=== PATIENT | male | born 1970 | race Caucasian/White ===

== ENCOUNTER 2022-10-01 09:54 | Inpatient (IN) ==
[2022-10-01] MEDS ORDERED: LIDOCAINE 2% JELLY 5 ML TUBE EXT ONE (10:18)
--- NOTE | 2022-10-01 10:22 | Emergency Department Note ---
ED Provider Note History of Present Illness Chief Complaint: Kidney Stone Stated Complaint: KIDNEY STONE Time Seen by Provider: 10/01/22 10:04 52-year-old male who presents the emergency department for evaluation of a kidney stone stuck in his penis. The patient reports that he noticed it yesterday, and tried to reposition it to get it to pass, and also tried to pull it out without success. He thinks that it is an inch long with a disc portion to it as well. He reports difficulty urinating around it with abdominal pressure. The patient does report a prior history of kidney stones. Patient denies any back pain, nausea or fever. Home Medications Medication Instructions Recorded Confirmed Type acetaminophen 500 mg tablet 500 mg PO BID PRN Pain 03/02/19 03/02/19 History (Tylenol Extra Strength) ibuprofen 200 mg tablet 400 - 600 mg PO BID PRN Pain 03/02/19 03/02/19 History multivitamin 1 tab PO DAILY 03/02/19 03/02/19 History naproxen sodium 220 mg tablet 220 mg PO BID PRN Pain 03/02/19 03/02/19 History Allergies Allergy/AdvReac Type Severity Reaction Status Date / Time No Known Allergies Allergy Verified 03/15/19 06:25 Past Med/Surg History Medical History (Updated 10/02/22 @ 06:46 by Ramses Lim MD) Kidney stones Surgical History H/O wisdom tooth extraction History of cystoscopy History of lithotripsy x2 Family History Uncle Family hx of colon cancer great uncle FHx: prostate cancer great uncle FHx: bladder cancer Grandfather (Maternal) FHx: sudden cardiac (SCD) Brother FHx: stroke, Onset Age: 32 Other No family history of adverse response to anesthesia Social History Smoking Status: Former smoker Second Hand Exposure: Yes (as a child); Do You Dip or Chew Tobacco: Yes (1 can/day (advised)); Hx Alcohol Use: No Hx Substance Use: No Preferred Language: Japanese Communication Ability: Effective Acetaldehyde Converter Operator Required: No Beliefs That Will Affect Care: None Current Living Situation: Significant Other Current Living Situation Comment: lives with Jadiel Caba Other Information That Helps Us Care for You: No Feels Safe at Home: Yes Safety Concerns: Feels Safe At This Time Assistive Devices: None Physical Exam Vital Signs Vital Signs - 24 hr 10/01/22 12:50 10/01/22 13:15 Temperature 36.6 C 36.5 C Temperature Source Oral Oral Pulse Rate 107 H Pulse Rate [Apical] 107 H Pulse Rhythm [Apical] Regular Respiratory Rate 18 20 Respiratory Effort / Characteristics Non-Labored Spontaneous Normal for Patient Respiratory Depth Normal Respiratory Pattern Regular Blood Pressure 111/82 Blood Pressure [Right Arm] 115/73 Blood Pressure Mean [Right Arm] 87 Blood Pressure Position [Right Arm] Semi-fowlers Pulse Oximetry 98 97 Oxygen Delivery Method Room Air Room Air CONSTITUTIONAL: Healthy and well nourished. Patient does not appear in any a cute distress. HEENT: No scleral icterus or conjunctival injection/pallor RESPIRATORY: Clear to auscultation bilaterally with no wheezing, crackles, rhonchi or stridor. CARDIOVASCULAR: Regular rate and rhythm with no murmurs, rubs or gallops. GASTROINTESTINAL: Bowel sounds present in all quadrants. Patient has minimal suprapubic tenderness to palpation. Negative CVA tenderness. MUSCULOSKELETAL: Full range of motion of all joints without discomfort. INTEGUMENTARY: Examination shows an erythematous rash on the forearms, inguinal creases and legs, with an estimated body surface area of 29% by rule of nines. HEMATOLOGIC: No ecchymosis or petechiae. PSYCHIATRIC: Positive affect. NEUROLOGIC: No focal neurologic deficits noted. Procedures Free Text Procedures Patient agreed to try extraction of the urethral stone after application of Uro- Jet lidocaine 2% jelly. I was able to administer some of the jelly passed the stone, however did not get adequate local anesthesia at the urethral meatus, with the patient unable to tolerate attempted stone removal. This was all done in sterile fashion. Course Course Patient history and physical exam were performed. Nurses notes were reviewed. Vital signs were reviewed and. At this point, I did recommend trying to extract the stone after applying Uro-Jet lidocaine 2% jelly, but unfortunate the patient was unable to tolerate the procedure. At this point, I did reach out to [facility] (ARIEL Patton), who came to the emergency department and attempted removal as well without success. At this point, the patient will be taken to the OR for sedation and stone removal. Please see urology dictation for further treatment and final disposition. I did order preop labs for urology for surgical and anesthesiology convenience. It is noted that the patient also had skin lesions on his arms, abdomen, groin and legs after using Clorox wipes on his skin. Administered Medications Docusate Sodium (Docusate Sodium 100 Mg Cap) 100 mg PO BID TAMMY Stop: 10/31/22 20:59 Last Admin: 10/02/22 09:14 Dose: 100 mg Documented By: Admin: 10/01/22 21:28 Dose: 100 mg Documented By: KARSONP Cefazolin Sodium (Ancef 1000mg) 1,000 mg in 7.5 mls @ 3.75 mls/min IV Q12H TAMMY Stop: 10/07/22 09:29 Last Admin: 10/02/22 10:51 Dose: 3.75 mls/min Documented By: ALVINA Oxycodone HCl (Oxycodone Hcl Ir 5 Mg Tab (Immediate Release)) 10 mg PO Q4H PRN PRN Reason: SEVERE Pain (7,8,9,10) Stop: 10/15/22 15:52 Last Admin: 10/01/22 16:22 Dose: 10 mg Documented By: KD Discontinued Medications Bupivacaine HCl (Bupivacaine 0.5 % 5 Mg/1 Ml Mpf 30ml Vial) Confirm Administered Dose 30 ml .ROUTE .STK-MED ONE Stop: 10/01/22 12:59 Last Admin: 10/01/22 14:16 Dose: 10 ml Documented By: [id number] Diphenhydramine HCl (Diphenhydramine Capsule 25 Mg Cap) 25 mg PO NOW ONE Stop: 10/01/22 15:08 Last Admin: 10/01/22 15:13 Dose: 25 mg Documented By: WT Fentanyl Citrate (Fentanyl Citrate Pf 100 Mcg/2 Ml Vial) 50 mcg IV Q5M PRN PRN Reason: PACU Use Only-Pain Stop: 10/01/22 21:31 Last Admin: 10/01/22 15:18 Dose: 50 mcg Documented By: Admin: 10/01/22 15:13 Dose: 50 mcg Documented By: WT Cefazolin Sodium (Ancef 2000mg) 2,000 mg in 15 mls @ 3.75 mls/min IV PREOP ONE; Protocol Stop: 10/01/22 12:53 Last Admin: 10/01/22 13:33 Dose: 3.75 mls/min Documented By: ALEXANDRO Lactated Ringer's (Lr) 1,000 mls @ 75 mls/hr IV .[id number] TAMMY Stop: 10/31/22 15:52 Last Infusion: 10/02/22 09:16 Dose: 0 mls/hr Documented By: Admin: 10/02/22 00:31 Dose: 75 mls/hr Documented By: Infusion: 10/02/22 00:31 Dose: 75 mls/hr Documented By: Admin: 10/01/22 16:19 Dose: 75 mls/hr Documented By: KAREN Lidocaine HCl (Lidocaine 2% Jelly 5 Ml Tube) 5 ml EXT NOW ONE Stop: 10/01/22 10:19 Last Admin: 10/01/22 11:52 Dose: 5 ml Documented By: PB Medical Decision Making Medical Records Attestation: I reviewed the patient's medical records. Home Medications was personally reviewed by me Laboratory Data Attestation: I reviewed the patient's lab results. 10/01/22 12:45 10/01/22 12:45 Lab Results 10/01/22 10/01/22 Range/Units 12:45 12:45 WBC 9.96 (4.8-10.8) K/ul RBC 3.66 L (4.70-6.10) M/uL Hgb 11.8 L (14.0-18.0) g/dl Hct 35.4 L (42.0-52.0) % MCV 96.7 (80.0-100.0) fL MCH 32.2 (25.0-34.0) pg MCHC 33.3 (32.0-36.0) g/dL RDW Std Deviation 49.1 H (36.4-46.3) fL RDW Coeff of [place] 13.9 (11.5-14.5) % Plt Count 258 (130-400) K/uL MPV 9.6 (9.4-12.4) fL Immature Gran % (Auto) 0.3 % Neut % (Auto) 93.2 % Lymph % (Auto) 2.7 % Randall % (Auto) 3.0 % Eos % (Auto) 0.5 % Baso % (Auto) 0.3 % Neut # (Auto) 9.28 H (1.40-6.50) K/uL Lymph # (Auto) 0.27 L (1.2-3.4) K/uL Randall # (Auto) 0.30 (0.11-0.59) K/uL Eos # (Auto) 0.05 (0-0.50) K/uL Baso # (Auto) 0.03 (0-0.2) K/uL Immature Gran # (Auto) 0.03 (0.01-0.20) K/uL Echinocytes 1+ Sodium 137 (136-145) mmol/L Potassium 4.6 (3.5-5.1) mmol/L Chloride 103 (98-107) mmol/L Carbon Dioxide 15 L (21-32) mmol/L Anion Gap 19 H (3-11) BUN 89 H (6-23) mg/dl Creatinine 12.94 H* (0.6-1.4) mg/dl Est Cr Clr Drug Dosing 8.0 ml/min Est GFR ( Amer) 4.6 ml/min Est GFR (Non-Af Amer) 4.0 ml/min BUN/Creatinine Ratio 6.9 L (10-20) Glucose 89 (70-99(Fasting)) mg/dl Calcium 7.7 L (8.6-10.3) mg/dl Total Bilirubin 0.6 (0.2-1.0) mg/dl AST 39 (13-39) U/L ALT 34 (7-52) U/L Alkaline Phosphatase 56 (34-104) U/L Total Protein 6.5 (6.0-8.3) gm/dl Albumin 3.5 (3.4-5.0) gm/dl Globulin 3.0 (2.5-4.0) gm/dl Albumin/Globulin Ratio 1.2 (0.9-2) MDM Narrative See ED Course section for further details of today's visit. The patient pre sents with complaint of a retained ureteral stone that he was unable to remove at home. Both myself and urology were unable to remove the stone while in the emergency department, therefore he will be taken to the OR for stone removal under anesthesia. As indicated previously, the patient also has a chemical dermatitis from attempting to clean his skin with a Clorox wipe. This should heal without any further issues, however I did recommend watching for any signs of developing infection. Impression Calculus in urethra, Chemical dermatitis Discharge Plan Visit Data Chief Complaint: Kidney Stone Stated Complaint: KIDNEY STONE ED Provider: Ronald Miner ED Midlevel Provider: Thanh Reza Discharge Problem: Calculus in urethra, Chemical dermatitis Patient Disposition: Admitted As Inpatient Discharge Instructions Interventions: ED Discharge Assessment Last Done: 10/01/22 12:50
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
[2022-10-01] MEDS ORDERED: LIDOCAINE 2% 2 ML VIAL/AMP(20MG/ML) INFIL ONE (12:48)
[2022-10-01] MEDS ORDERED: PROPOFOL IV EMULSION 10 MG/ML 20 ML VIAL IV ONE (12:48)
[2022-10-01] MEDS ORDERED: MIDAZOLAM HCL 1 MG/ML 2ML VIAL ONE (12:48)
[2022-10-01] MEDS ORDERED: fentaNYL citrate PF 100 MCG/2 ML VIAL ONE ×2 (12:48→13:49)
[2022-10-01] MEDS ORDERED: ceFAZolin 2000MG 2,000 MG/15 ML SYR IV ONE (12:50)
[2022-10-01] MEDS ORDERED: BUPIVACAINE 0.5 % 5 MG/1 ML MPF 30ML VIAL ONE (12:58)
[2022-10-01 13:16] LABS: Hematocrit (blood only) 35.4 % (42.0-52.0); Hemoglobin 11.8 g/dl (14.0-18.0); Mean Corpuscular Hemoglobin 32.2 pg (25.0-34.0); Mean Corpuscular Hgb Conc 33.3 g/dL (32.0-36.0); Mean Corpuscular Volume 96.7 fL (80.0-100.0); Mean Platelet Volume 9.6 fL (9.4-12.4); Platelet Count 258 K/uL (130-400); RDW Coefficient of Variation 13.9 % (11.5-14.5); RDW Standard Deviation 49.1 fL (36.4-46.3); Red Blood Count 3.66 M/uL (4.70-6.10); White Blood Count 9.96 K/ul (4.8-10.8)
--- NOTE | 2022-10-01 13:30 | Anesthesiology Consultation ---
Date of Service October 01, 2022 Assessment & Plan Chart Review Chart Review: Acceptable Risk for Surgery Consults Requested none History Surgery Operation Date: 10/01/22 09:00 Proposed Procedures p Meatotomy - Ramses Lim MD s Cystoscopy Possible Baptiste Placement - Ramses Lim MD Height/Weight Height: 6 ft 3 in Weight: 83.3 kg Allergies Allergy/AdvReac Type Severity Reaction Status Date / Time No Known Allergies Allergy Verified 03/15/19 06:25 Medications Home Medications Medication Instructions Recorded Confirmed Last Taken acetaminophen 500 mg tablet 500 mg PO BID PRN Pain 03/02/19 03/02/19 03/11/19 (Tylenol Extra Strength) ibuprofen 200 mg tablet 400 - 600 mg PO BID PRN Pain 03/02/19 03/02/19 03/07/19 multivitamin 1 tab PO DAILY 03/02/19 03/02/19 03/14/19 naproxen sodium 220 mg tablet 220 mg PO BID PRN Pain 03/02/19 03/02/19 03/07/19 NPO Date Last Intake of Fluids: 10/01/22 Time Last Intake of Fluids: 06:00 Date Last Intake of Solids: 09/30/22 Time Last Intake of Solids: 17:00 Past Medical History Medical History (Updated 10/01/22 @ 12:46 by ARIEL South) Kidney stones Past Family History Family History Uncle Family hx of colon cancer great uncle FHx: prostate cancer great uncle FHx: bladder cancer Grandfather (Maternal) FHx: sudden cardiac (SCD) Brother FHx: stroke, Onset Age: 32 Other No family history of adverse response to anesthesia Past Surgical History Surgical History H/O wisdom tooth extraction History of cystoscopy History of lithotripsy x2 Social History Smoking Status: Former smoker tobacco type: cigarettes and smokeless tobacco Do You Dip or Chew Tobacco: Yes (1 can/day (advised)) Hx Alcohol Use: No Hx Substance Use: No substance use type: does not use Physical Exam Vital Signs Last Vital Signs Temp 36.5 C 10/01/22 13:15 Pulse 107 H 10/01/22 13:15 Resp 20 10/01/22 13:15 BP 115/73 06/27/23 13:15 Pulse Ox 97 10/01/22 13:15 O2 Del Method Room Air 10/01/22 13:15 Testing Laboratory Results 10/01/22 12:45
[2022-10-01] MEDS ORDERED: ePHEDrine sulfate 50 MG/ML AMP IV PRN (13:31)
[2022-10-01] MEDS ORDERED: HYDROmorphone INJ 2 MG/ML SYR/VIAL IV PRN (13:31)
[2022-10-01] MEDS ORDERED: PROMETHAZINE HCL 12.5 MG in SODIUM CHLORIDE 0.9% 50 ML IV PRN (13:31)
[2022-10-01] MEDS ORDERED: ATROPINE SULFATE 0.1 MG/ML 10ML SYR IV PRN (13:31)
[2022-10-01] MEDS ORDERED: ONDANSETRON INJ 2 MG/ML 2 ML VIAL IV PRN ×2 (13:31→15:53)
[2022-10-01 13:39] LABS: Basophils # (auto) 0.03 K/uL (0-0.2); Basophils % (auto) 0.3 %; Echinocytes 1+; Eosinophils # (auto) 0.05 K/uL (0-0.50); Eosinophils % (auto) 0.5 %; Immature Granulocytes # (auto) 0.03 K/uL (0.01-0.20); Immature Granulocytes % (auto) 0.3 %; Lymphocytes # (auto) 0.27 K/uL (1.2-3.4); Lymphocytes % (auto) 2.7 %; Neutrophils # (auto) 9.28 K/uL (1.40-6.50); Neutrophils % (auto) 93.2 %
[2022-10-01 13:42] LABS: Albumin Globulin Ratio 1.2 (0.9-2); Albumin Level 3.5 gm/dl (3.4-5.0); BUN Creatinine Ratio 6.9 (10-20); Bilirubin,Total 0.6 mg/dl (0.2-1.0); Calcium 7.7 mg/dl (8.6-10.3); Est GFR (African American) 4.6 ml/min; Potassium 4.6 mmol/L (3.5-5.1); Total Protein 6.5 gm/dl (6.0-8.3)
[2022-10-01] MEDS ORDERED: ONDANSETRON INJ 2 MG/ML 2 ML VIAL ONE (13:43)
[2022-10-01] MEDS ORDERED: DEXAMETHASONE SOD INJ 4 MG/ML VIAL ONE (13:43)
[2022-10-01] MEDS ORDERED: PHENYLEPHRINE HCL 10 MG/ML VIAL ONE (14:06)
--- NOTE | 2022-10-01 14:22 | Post Operative Brief Note ---
PG Immediate Post Op with CF Date of Surgery October 01, 2022 Pre & Post Diagnosis Operation Date: 10/01/22 09:00 Pre-Op Diagnosis: Calculus in urethra Urinary retention Post-Op Diagnosis: Calculus in urethra Urinary retention I identified the patient and participated in the time-out.: Yes Procedure Operation Date: 10/01/22 09:00 Actual Procedures p Meatotomy - Ramses Lim MD s Cystoscopy, Baptiste Catheter Placement - Ramses Lim MD Surgeon Ramses Lim MD And Taxi Instructor Bus Trolley None Estimated Blood Loss 10 Findings See Below Several centimeters stone lodged at urethral meatus. Had to do a meatotomy. Cystoscopy revealed an inflamed bladder and an area of almost tissue necrosis in the bulbar urethra. There was some trauma to the distal urethra where the stone was lodged. No perforation of bladder noted. Hemostatic at end of case. Catheter draining clear urine. Urine initially drained was purulent. Specimens Specimen Description: A: Urethral Stone for Chemical Analysis Drains Baptiste Catheter Anesthesia Type General Complications none
--- NOTE | 2022-10-01 14:34 | Operative Report ---
PG Post Operative Report Pre & Post Diagnosis Operation Date: 10/01/22 09:00 Pre-Op Diagnosis: Calculus in urethra Urinary retention Post-Op Diagnosis: Calculus in urethra Urinary retention I identified the patient and participated in the time-out.: Yes Procedure Operation Date: 10/01/22 09:00 Actual Procedures p Meatotomy - Ramses Lim MD s Cystoscopy, Capps Catheter Placement - Ramses Lim MD Surgeon Ramses Lim MD Subcontract Manager None Estimated Blood Loss 10 Findings See Below Several centimeters stone lodged at urethral meatus. Had to do a meatotomy. Cystoscopy revealed an inflamed bladder and an area of almost tissue necrosis in the bulbar urethra. There was some trauma to the distal urethra where the stone was lodged. No perforation of bladder noted. Hemostatic at end of case. Catheter draining clear urine. Urine initially drained was purulent. Specimens Urethral stone Drains 20Fr capps catheter with 10cc in balloon Anesthesia Type General Complications none Indications 52-year-old male presented the emergency department with urinary retention and a palpable distal urethral stone. The emergency department was unable to remove the stone at the bedside. Patient declined further bedside management and requested to be taken to the OR. He was taken to the OR emergently as his bladder scan showed 1900 cc for the above-noted procedure. Of note, as we are putting the patient to sleep we were notified that his creatinine was 12.9. Description of Procedure After informed consent was obtained, the patient was transported to the operative suite. General anesthesia was induced. They were placed in dorsal lithotomy position and prepped and draped in sterile fashion. They received preoperative Ancef. An appropriate surgical timeout was performed. I evaluated his meatus and the stone was palpably much larger than his meatal opening so I opted to perform a meatotomy. I clamped several millimeters of the 6 o'clock position of his meatus and then divided this sharply with scissors. I was still unable to remove the stone so I opted to perform a meatotomy at the 12:00 madeline. Several millimeters of tissue was clamped and then divided sharply with scissors. With his meatus more patent, I was able to grasp the stone with a clamp and gently remove it from the meatal opening. The stone measured 2 to 3 cm. I then performed cystoscopy. He had some expected trauma at the distal meatus but oddly enough had a lot of discolored almost necrotic appearing tissue in his bulbar urethra. His prostatic urethra was normal. The bladder was significantly distended and I immediately emptied over 1 L of purulent urine. Bhagat cystoscopy revealed globally inflamed bladder but no lesions or other s tones. There is no concern for perforation. We remove the cystoscope I took several photos of the urethra. I then reapproximated the mucosal edges of his meatotomy with interrupted 5-0 Monocryl. Hemostasis was appropriate. I placed a 20 [place] Capps catheter with return of clear urine and inflated the balloon with 10 cc of sterile water. This concluded the end of the case. All counts correct at the end of the case. I was present scrubbed and actively participated for the entirety of the procedure I attest to the content of the Intraoperative Record and any orders documented therein. Any exceptions are noted below.
[2022-10-01] MEDS ORDERED: diphenhydrAMINE Capsule 25 MG CAP PO ONE (15:07)
[2022-10-01] MEDS: fentaNYL citrate PF 100 MCG/2 ML VIAL IV PRN ×2 (15:13→15:18)
[2022-10-01] MEDS ORDERED: HYDROCORTISONE 2.5% CR 30 GM TUBE EXT PRN (15:13)
--- NOTE | 2022-10-01 15:20 | Hospitalist Consultation ---
Date of Consultation October 01, 2022 Assessment & Plan (1) Pruritic rash: 52 y/o male with a history of nephrolithiasis presented to the ED with a kidney stone stuck in his penis and difficulty with urination found to have obstructive urinary retention (1.9L) taken to the OR to relieve the obstruction. Hospitalist service consulted for progression of rash. Rash began over the weekend. ?chemical burn/contact dermatitis. Did apply an antibacterial wipe prior to development of rash. Pruritic. Non-painful. No fevers/chills/SOB/CP/wheezing/tongue or lip swelling. Will give one time dose of benadryl and apply hydrocortisone 2.5% topically to the affected areas. Could consider transitioning to hydroxyzine - monitor for signs of sedation. Could also trial second gen antihistamine such as certrizine or dominic on an outpatient basis. hydrocortisone cream 2.5% one time benadryl consider transitioning to hydroxyzine - monitor for signs of sedation consider allergy outpatient f/u Discussed case with Dr. Azam Rose. See attending attestation for further documentation. Thank you for this interesting consult (2) Calculus in urethra: (3) Urinary retention: Supervising Physician Co-Signing Physician Notes Mack is a 52-year-old male with a history of chemical/contact dermatitis who presented for ARF and urinary retention in the setting of a distal obstructing stone now s/p cystoscopy by urology. Patient does show signs of obstructive renal failure, gross obstruction is now treated. Patient is seen postoperativel y for evaluation of a rash. Patient notes that he has had a rash on his elbows, lower forearms, and groin. He has had similar rashes before. Is currently very itchy but not painful. He denies fever/chills/sweats. He notes he did wipe with an antibacterial wipe before the rash developed, and has had similar rashes with detergents in the past. Rash itself is itchy and papular, but without puru lence/scale. Has been ordered Benadryl for itching, reasonable to transition to hydroxyzine for better skin effect. Can start cetirizine as outpatient, if his renal function does not improve or normalize this would need renal dose adjustment. If worsening or changing well and patient can reevaluate; otherwise given history of similar recurrent rashes and dermatitis with suspected exposure can have follow-up as outpatient with allergy/immunology. History of Present Illness Reason for Consultation: rash Requesting Physician: Ramses Lim MD Attending Physician: Dr. Rose History of Present Illness 52 y/o male with a history of nephrolithiasis presented to the ED with a kidney stone stuck in his penis and difficulty with urination found to have obstructive urinary retention (1.9L) taken to the OR to relieve the obstruction. He denied fevers, chills, nausea, vomiting.On arrival to the ED, he was afebrile and hemodynamically stable. ED tried to extract the stone after applying topical Lidocaine jelly, however this was unsuccessful. On my interview patient wsas groggy after anesthesia. He reported that the rash had been present at the time of admission, but has progressed. Pruritic rash. No tongue or throat swelling. No CP or SOB. No difficulty breathing. Otherwise feels well. Allergies Allergy/AdvReac Type Severity Reaction Status Date / Time No Known Allergies Allergy Verified 03/15/19 06:25 Home Medications Medication Instructions Recorded Confirmed Type acetaminophen 500 mg tablet 500 mg PO BID PRN Pain 03/02/19 03/02/19 History (Tylenol Extra Strength) ibuprofen 200 mg tablet 400 - 600 mg PO BID PRN Pain 03/02/19 03/02/19 History multivitamin 1 tab PO DAILY 03/02/19 03/02/19 History naproxen sodium 220 mg tablet 220 mg PO BID PRN Pain 03/02/19 03/02/19 History Patient History Medical History (Updated 10/01/22 @ 15:45 by Azam Rose MD) Kidney stones Surgical History H/O wisdom tooth extraction History of cystoscopy History of lithotripsy x2 Family History Uncle Family hx of colon cancer great uncle FHx: prostate cancer great uncle FHx: bladder cancer Grandfather (Maternal) FHx: sudden cardiac (SCD) Brother FHx: stroke, Onset Age: 32 Other No family history of adverse response to anesthesia Social History Smoking Status: Former smoker Second Hand Exposure: Yes (as a child); Do You Dip or Chew Tobacco: Yes (1 can/day (advised)); Hx Alcohol Use: No Hx Substance Use: No Preferred Language: German Communication Ability: Effective Cargo Checker Required: No Beliefs That Will Affect Care: None Current Living Situation: Alone Feels Safe at Home: Yes Assistive Devices: Glasses Review of Systems Review of Systems: See HPI Physical Exam Physical Exam: Gen: well appearing male in NAD, groggy from anesthesia HEENT: AT IA Throat: OP clear, no tongue or throat swelling Skin: diffuse papular erythematous rash involving the bilateral arms and legs - relatively trunk sparing CV: RRR no m/r/g clinically well perfused Resp: CTAB no increased of breathing Neuro: groggy from anesthesia Psych: appropriate mood and affect Results & Data Results & Data Vital Signs (Past 12 Hours) Vital Signs Temp Pulse Pulse Resp BP BP Pulse Ox 10/01/22 14:55 92 H 12 111/74 100 10/01/22 15:05 91 H 12 103/65 100 10/01/22 14:45 90 16 102/67 100 10/01/22 14:35 36.0 C L 87 12 112/70 99 10/01/22 13:15 36.5 C 107 H 20 115/73 97 10/01/22 12:50 36.6 C 107 H 18 111/82 98 10/01/22 09:57 36.4 C L 99 H 20 134/78 97 O2 Del Method O2 Flow Rate 10/01/22 14:55 Oxymask 4 10/01/22 15:05 Room Air 10/01/22 14:45 Oxymask 4 10/01/22 14:35 Oxymask 6 10/01/22 13:15 Room Air 10/01/22 12:50 Room Air 10/01/22 09:57 Room Air Laboratory Results 10/01/22 12:45 10/01/22 12:45 Resident Activity Tracking Resident Involvement: Resident Care Provided Care Provided: Adult Hospital Medicine
--- NOTE | 2022-10-01 15:30 | Anesthesiology Progress Note ---
Date of Service October 01, 2022 Anesthesia Post Procedure Vital Signs Vital Signs: Temp Pulse Pulse Resp BP BP Pulse Ox 10/01/22 15:25 36.3 C L 89 16 123/83 97 10/01/22 15:15 94 H 16 105/76 98 10/01/22 14:55 92 H 12 111/74 100 10/01/22 15:05 91 H 12 103/65 100 10/01/22 14:45 90 16 102/67 100 10/01/22 14:35 36.0 C L 87 12 112/70 99 10/01/22 13:15 36.5 C 107 H 20 115/73 97 10/01/22 12:50 36.6 C 107 H 18 111/82 98 10/01/22 09:57 36.4 C L 99 H 20 134/78 97 O2 Del Method O2 Flow Rate 10/01/22 15:25 Room Air 10/01/22 15:15 Room Air 10/01/22 14:55 Oxymask 4 10/01/22 15:05 Room Air 10/01/22 14:45 Oxymask 4 10/01/22 14:35 Oxymask 6 10/01/22 13:15 Room Air 10/01/22 12:50 Room Air 10/01/22 09:57 Room Air Pain Intensity Penis: Pain Intensity: 4 Transfer of Care Handoff Completed per policy Notes Mental Status: alert / awake / arousable and participated in evaluation Patient Amnestic to Procedure: Yes Nausea / Vomiting: adequately controlled Pain: adequately controlled Airway Patency, RR, SpO2: stable & adequate BP & HR: stable & adequate Hydration State: stable & adequate Anesthetic Complications: no major complications apparent
[2022-10-01] MEDS ORDERED: oxyCODONE HCL IR 5 MG TAB (IMMEDIATE RELEASE) PO PRN (15:53)
[2022-10-01] MEDS ORDERED: ACETAMINOPHEN 325 MG TAB PO PRN (15:53)
[2022-10-01] MEDS ORDERED: oxyBUTYnin chloride 5 MG TAB PO PRN (15:53)
[2022-10-01] MEDS: LACTATED RINGER'S 1,000 ML IV SCH (16:19)
[2022-10-01] MEDS: oxyCODONE HCL IR 5 MG TAB (IMMEDIATE RELEASE) PO PRN (16:22)
[2022-10-01 18:04] LABS: BUN Creatinine Ratio 7.4 (10-20); Calcium 7.9 mg/dl (8.6-10.3); Creatinine Clr Calc Pharmacy 9.3 ml/min; Est GFR (African American) 5.3 ml/min; Est GFR (Non-African American) 4.6 ml/min
--- NOTE | 2022-10-01 19:50 | Communication Note ---
Date of Service: October 01, 2022 This pt. underwent urethral stone extraction earlier today. Prior to surgery pt. notes he was only able to "dribble" small amount of urine. He was noted to have a 3 cm stone lodged in urethra and in excess of 1 liter of urine in his bladder. He was noted to have BUN and Cr. pre-op of 80 & 12.9 @ 12:45 pm. Post op labs at [facility]ox. 5:00 pm showed sodium, potassium were in normal range. BUN an Cr were 84 & 11.3. Since 4:00 pm pt. has diuresed approx. 2450 cc of clear urine. He has remained hemodynamically stable. I discussed with Dr. Lim and as renal function has begun to show signs of improvement and electrolytes are in normal range we will continue to monitor for the present time. Nephrotoxins are to be avoided. Repeat labs are ordered for the am on 10/02/22.
[2022-10-01] MEDS: DOCUSATE SODIUM 100 MG CAP PO SCH (21:28)
[2022-10-02] MEDS: LACTATED RINGER'S 1,000 ML IV SCH (00:31)
[2022-10-02 06:47] LABS: BUN Creatinine Ratio 10.1 (10-20); Calcium 7.7 mg/dl (8.6-10.3); Creatinine Clr Calc Pharmacy 14.8 ml/min; Est GFR (African American) 9.4 ml/min; Est GFR (Non-African American) 8.1 ml/min; Potassium 5.3 mmol/L (3.5-5.1)
--- NOTE | 2022-10-02 06:47 | Urology Progress Note ---
Date of Service October 02, 2022 Assessment & Plan (1) Urinary retention: (2) GRAEME (acute kidney injury): (3) Calculus in urethra: Plan 52-year-old male who came to the hospital with a urethral stone lodged at his meatus on 10/01/2022 and GRAEME with a creatinine of 12.9. He was taken emergently to the OR for meatotomy, cystoscopy and Baptiste catheter placement. Subjectively improving today Follow-up morning labs Monitor for postobstructive diuresis. Likely DC fluids and let patient drink to thirst Reschedule antibiotics based on renal function Medicine consulted yesterday for rash and think it is contact dermatitis and recommended Benadryl or hydroxyzine Discussed with patient that catheter will likely stay in for at least a week given appearance of urethra intraoperatively. He will likely be in the hospital for 1-2 more days based on how his creatinine downtrends Continue pain control Continue regular diet Admission and Anticipated Discharge Date Admission Date: October 01, 2022 Subjective No acute issues overnight. Labs are pending this morning. Pain is well controlled. Afebrile with stable vitals. He is making a large amount of urine which is expected as he is experiencing postobstructive diuresis. Review of Systems Review of Systems: 14 point review of systems negative outside of what is listed above in HPI Physical Exam Physical Exam: General: Alert and oriented, no acute distress HEENT: Normocephalic, mucous membranes moist Pulmonary: Nonlabored respirations Abdomen: Nondistended : Urethral meatus healing nicely with no active bleeding. 20 Citizen [place] Baptiste catheter in place draining dilute urine Extremities: Moves all 4 spontaneously Neuro: No gross deficits Skin: Warm, dry, no rashes noted Results & Data Vital Signs (Past 12 Hours) Vital Signs Temp Pulse Resp BP Pulse Ox O2 Del Method 10/02/22 03:00 36.9 C 89 18 123/70 97 Room Air 10/01/22 23:13 36.7 C 81 16 109/64 97 Room Air 10/01/22 20:22 36.7 C 87 16 126/79 97 Room Air 10/01/22 18:55 89 16 113/77 95 Room Air PG Care Time/CCT Total # of Minutes Spent Total Time Spent with Patient: Total time spent is greater than 50% in coordination of care (as documented) at patient's floor/unit and/or counseling patient: Coding Level of Care Code 03161 SUB INP/OBS CARE 235MIN Diagnoses Urinary retention R33.9 GRAEME (acute kidney injury) N17.9 Calculus in urethra N21.1
[2022-10-02 07:29] LABS: Hematocrit (blood only) 32.9 % (42.0-52.0); Hemoglobin 11.1 g/dl (14.0-18.0); Mean Corpuscular Hemoglobin 32.6 pg (25.0-34.0); Mean Corpuscular Hgb Conc 33.7 g/dL (32.0-36.0); Mean Corpuscular Volume 96.8 fL (80.0-100.0); Mean Platelet Volume 9.7 fL (9.4-12.4); Platelet Count 275 K/uL (130-400); RDW Coefficient of Variation 14.3 % (11.5-14.5); RDW Standard Deviation 50.4 fL (36.4-46.3)
[2022-10-02 07:46] LABS: Basophils # (auto) 0.06 K/uL (0-0.2); Basophils % (auto) 0.2 %; Echinocytes 1+; Eosinophils # (auto) 0.01 K/uL (0-0.50); Immature Granulocytes # (auto) 0.26 K/uL (0.01-0.20); Immature Granulocytes % (auto) 1.1 %; Lymphocytes # (auto) 0.84 K/uL (1.2-3.4); Lymphocytes % (auto) 3.5 %; Monocytes # (auto) 1.71 K/uL (0.11-0.59); Monocytes % (auto) 7.1 %; Neutrophils # (auto) 21.32 K/uL (1.40-6.50); Neutrophils % (auto) 88.1 %; Polychromasia 1+
[2022-10-02] MEDS: DOCUSATE SODIUM 100 MG CAP PO SCH ×2 (09:14→20:32)
[2022-10-02] MEDS: ceFAZolin 1000MG 1,000 MG/7.5 ML SYR IV SCH ×2 (10:51→20:32)
[2022-10-02] MEDS: oxyCODONE HCL IR 5 MG TAB (IMMEDIATE RELEASE) PO PRN ×2 (15:23→20:17)
[2022-10-02 17:27] LABS: BUN Creatinine Ratio 16.7 (10-20); Est GFR (African American) 20.4 ml/min; Est GFR (Non-African American) 17.6 ml/min; Potassium 4.8 mmol/L (3.5-5.1)
[2022-10-03] MEDS: oxyCODONE HCL IR 5 MG TAB (IMMEDIATE RELEASE) PO PRN ×3 (03:56→21:10)
[2022-10-03 06:22] LABS: Hemoglobin 11.7 g/dl (14.0-18.0); Mean Corpuscular Hgb Conc 34.4 g/dL (32.0-36.0); Mean Corpuscular Volume 95.8 fL (80.0-100.0); Mean Platelet Volume 9.8 fL (9.4-12.4); Platelet Count 314 K/uL (130-400); RDW Coefficient of Variation 14.4 % (11.5-14.5); RDW Standard Deviation 50.2 fL (36.4-46.3); Red Blood Count 3.55 M/uL (4.70-6.10); White Blood Count 21.03 K/ul (4.8-10.8)
[2022-10-03 06:49] LABS: BUN Creatinine Ratio 19.8 (10-20); Calcium 8.1 mg/dl (8.6-10.3); Est GFR (African American) 49.1 ml/min; Est GFR (Non-African American) 42.4 ml/min; Potassium 4.5 mmol/L (3.5-5.1)
--- NOTE | 2022-10-03 08:33 | Hospitalist Progress Note ---
Date of Service October 02, 2022 Assessment & Plan (1) Pruritic rash: Plan: 52 y/o male with a history of nephrolithiasis presented to the ED with a kidney stone stuck in his penis and difficulty with urination found to have obstructive urinary retention (1.9L) taken to the OR to relieve the obstruction. Hospitalist service consulted for progression of rash - began over the weekend. ?chemical burn/contact dermatitis sec to antibacterial wipe. Received one time dose of benadryl. Started on hydrocortisone 2.5% topically to the affected areas. -- Rash is significantly improved. Continue hydrocortisone cream 2.5% consider allergy outpatient f/u Will see patient as needed. (2) Calculus in urethra: (3) Urinary retention: Admission and Anticipated Discharge Date Admission Date: October 01, 2022 Subjective seen on 10/02. Rash on the arms, right thigh and left groin is much improved. denies itching no shortness of breath. Physical Exam Physical Exam: No distress. Skin: erythema across the arm more around shoulder, post right thigh extending into left groin with satellite patches at the edges. Neurologic: AAOx3 Results & Data Results & Data Vital Signs (Past 12 Hours) Vital Signs Temp Pulse Resp BP Pulse Ox O2 Del Method 10/03/22 07:34 37.4 C 84 16 127/77 95 Room Air 10/03/22 05:39 37.2 C 88 16 131/71 93 Room Air 10/03/22 02:25 37.5 C 103 H 20 162/107 H 94 Room Air 10/02/22 22:06 37.1 C 83 18 145/97 H 97 Room Air
[2022-10-03] MEDS: ceFAZolin 1000MG 1,000 MG/7.5 ML SYR IV SCH ×2 (08:34→21:08)
[2022-10-03] MEDS: DOCUSATE SODIUM 100 MG CAP PO SCH ×2 (08:34→21:08)
--- NOTE | 2022-10-03 08:50 | Urology Progress Note ---
Date of Service October 03, 2022 Assessment & Plan (1) Urinary retention: (2) GRAEME (acute kidney injury): (3) Calculus in urethra: Plan 52-year-old male who came to the hospital with a urethral stone lodged at his meatus on 10/01/2022 and GRAEME with a creatinine of 12.9. He was taken emergently to the OR for meatotomy, cystoscopy and Baptiste catheter placement. Recovering appropriately. Remains afebrile and hemodynamically stable. Labs today show creatinine downtrending appropriately- 1.82 today. White count down from 24-21. Electrolytes are in normal range. Will continue to trend. Baptiste draining clear yellow urine. Medicine consulted for rash and think it is contact dermatitis - Rash has improved significantly. Continue hydrocortisone cream 2.5% and consider allergy outpatient f/u. Discussed with patient that catheter will likely stay in for at least a week given appearance of urethra intraoperatively. Will arrange outpatient follow-up for removal. Continue antibiotics. Continue pain control. Continue regular diet. Will continue to monitor closely with likely plans for discharge tomorrow given he continues to progress as expected. Admission and Anticipated Discharge Date Admission Date: October 01, 2022 Subjective Patient examined at bedside this AM. Awake, resting in bed on arrival. No acute distress. Reports minimal pain this morning from catheter/surgical site. Having some lower back pain- feels this is from the bed. Denies fevers, chills, nausea, vomiting. Baptiste draining clear yellow urine. Review of Systems Constitutional: as per Subjective / HPI Gastrointestinal: as per Subjective / HPI Genitourinary: + as per Subjective / HPI Physical Exam Constitutional: well developed and well nourished; no acute distress Respiratory: no respiratory distress and no labored breathing Skin: Rash on the arms, right thigh and left groin is much improved. Neurologic: moves all extremities and awake Psychiatric: A+Ox3, euthymic affect Genitourinary: Urethral meatus healing nicely with no active bleeding or discharge. 20 [address] Baptiste catheter in place draining clear urine. Results & Data Vital Signs (Past 12 Hours) Vital Signs Temp Pulse Resp BP Pulse Ox O2 Del Method 10/03/22 07:34 37.4 C 84 16 127/77 95 Room Air 10/03/22 05:39 37.2 C 88 16 131/71 93 Room Air 10/03/22 02:25 37.5 C 103 H 20 162/107 H 94 Room Air 10/02/22 22:06 37.1 C 83 18 145/97 H 97 Room Air PG Care Time/CCT Total # of Minutes Spent Total Time Spent with Patient: Total time spent is greater than 50% in coordination of care (as documented) at patient's floor/unit and/or counseling patient: Coding Level of Care Code 77789 SUB INP/OBS CARE 2/35MIN Diagnoses Urinary retention R33.9 GRAEME (acute kidney injury) N17.9 Calculus in urethra N21.1
[2022-10-03 17:24] LABS: BUN Creatinine Ratio 19.5 (10-20); Calcium 8.2 mg/dl (8.6-10.3); Creatinine Clr Calc Pharmacy 82.5 ml/min; Est GFR (African American) 75.1 ml/min; Est GFR (Non-African American) 64.8 ml/min; Potassium 4.5 mmol/L (3.5-5.1)
[2022-10-04 06:34] LABS: Hematocrit (blood only) 35.4 % (42.0-52.0); Hemoglobin 12.1 g/dl (14.0-18.0); Mean Corpuscular Hemoglobin 32.9 pg (25.0-34.0); Mean Corpuscular Hgb Conc 34.2 g/dL (32.0-36.0); Mean Corpuscular Volume 96.2 fL (80.0-100.0); Mean Platelet Volume 9.7 fL (9.4-12.4); Platelet Count 306 K/uL (130-400); RDW Coefficient of Variation 13.7 % (11.5-14.5); RDW Standard Deviation 48.9 fL (36.4-46.3); Red Blood Count 3.68 M/uL (4.70-6.10); White Blood Count 18.18 K/ul (4.8-10.8)
[2022-10-04 07:01] LABS: BUN Creatinine Ratio 18.8 (10-20); Calcium 8.1 mg/dl (8.6-10.3); Creatinine Clr Calc Pharmacy 94.3 ml/min; Est GFR (African American) 88.3 ml/min; Est GFR (Non-African American) 76.2 ml/min; Potassium 4.1 mmol/L (3.5-5.1)
[2022-10-04] MEDS: ceFAZolin 1000MG 1,000 MG/7.5 ML SYR IV SCH (09:00)
[2022-10-04] MEDS: DOCUSATE SODIUM 100 MG CAP PO SCH (09:00)
--- NOTE | 2022-10-04 11:35 | Urology Progress Note ---
Date of Service October 04, 2022 Assessment & Plan (1) Urinary retention: (2) GRAEME (acute kidney injury): (3) Calculus in urethra: Plan 52-year-old male who came to the hospital with a urethral stone lodged at his meatus on 10/01/2022 and GRAEME with a creatinine of 12.9. He was taken emergently to the OR for meatotomy, cystoscopy and Capps catheter placement. Recovering appropriately. Remains afebrile and hemodynamically stable. Labs today show creatinine improved to 1.12. White count down from 24-21-18 today. Electrolytes are in normal range. Capps draining clear yellow urine. Medicine consulted for rash and think it is contact dermatitis - Rash has improved significantly. Continue hydrocortisone cream 2.5% and consider allergy outpatient f/u. Discussed with patient that catheter will need to stay in for at least a week given appearance of urethra intraoperatively. Will arrange outpatient follow-up for cystoscopy and catheter removal. Patient is stable for discharge home today with Capps catheter. Will discharge home on 2 weeks of antibiotics. Discharge instructions reviewed, all questions were answered. Admission and Anticipated Discharge Date Admission Date: October 01, 2022 Supervising Physician Co-Signing Physician Notes Discussed patient with YI. Agree with plan. Will discharge today. Will treat with several weeks of antibiotics. Will leave catheter in place for extended period of time due to necrotic area of bulbar urethra. Will see in clinic for cystoscopy and possible capps removal. Subjective Patient examined at bedside this AM. Awake, resting in bed on arrival. No acute distress. Reports minimal pain this morning from catheter/surgical site. Having some lower back pain- feels this is from the bed. He did have a documented temp of 38.2C overnight, but reports he was lying on a heating pad. Denies fevers, chills, nausea, vomiting. Capps draining clear yellow urine. Eager to go home today. Review of Systems Constitutional: as per Subjective / HPI Gastrointestinal: as per Subjective / HPI Genitourinary: + as per Subjective / HPI Physical Exam Constitutional: well developed and well nourished; no acute distress Neck: normal visual inspection Respiratory: normal respiratory effort; no respiratory distress and no labored breathing Musculoskeletal: Head/Neck/Chest: normocephalic Neurologic: moves all extremities and awake Psychiatric: A+Ox3, euthymic affect Results & Data Vital Signs (Past 12 Hours) Vital Signs Temp Pulse Resp BP Pulse Ox O2 Del Method 10/04/22 07:34 36.8 C 81 16 125/73 95 Room Air PG Care Time/CCT Total # of Minutes Spent Total Time Spent with Patient: Total time spent is greater than 50% in coordination of care (as documented) at patient's floor/unit and/or counseling patient: Coding Level of Care Code 78094 SUB INP/OBS CARE 2/35MIN Diagnoses Urinary retention R33.9 GRAEME (acute kidney injury) N17.9 Calculus in urethra N21.1
[2022-10-04] MEDS: oxyCODONE HCL IR 5 MG TAB (IMMEDIATE RELEASE) PO PRN (12:58)
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
[2022-10-08 16:52] LABS: Component 2 DNR; Source BLADDER STONE
== END 2022-10-04 15:30 | disposition home or self-care (01) | DRG 671 ==
LOC: ED 09:54 → OR 12:36 → 3N 14:32